=== PATIENT | male | born 1950 | race Caucasian/White ===

== ENCOUNTER → 2016-05-24 | Outpatient (CLI) | payer MEDICARE, OTHER ==
[~2016-05-24] MED LIST: BP MEDICATION PO; POLY10O RIGHT EYE
[2016-05-24 10:07] LABS: HDL CHOLESTEROL 56.8 MG/DL (40.0-60.0); INDIRECT BILIRUBIN 0.3 MG/DL (0.0-0.8); TOTAL BILIRUBIN ADULT 0.4 MG/DL (0.2-1.0)
== END ==
LOC: ELAB 07:07
PROVIDERS: ATTEND Internal Medicine Cardiovascular Disease
DX: E78.2 Mixed hyperlipidemia (principal); Z79.899 Other long term (current) drug therapy
CPT/HCPCS: 36415; 80061; 80076

== ENCOUNTER → 2016-11-28 | Outpatient (CLI) | payer MEDICARE, OTHER ==
[2016-11-28 09:07] LABS: AUTOMATED NEUTROPHIL # 5.9 TH/MM3 (1.8-7.7); BASOPHIL # 0.1 TH/MM3 (0-0.2); BASOPHIL % 0.7 % (0.0-2.0); EOSINOPHIL # 0.4 TH/MM3 (0-0.4); EOSINOPHIL % 4.7 % (0.0-4.0); HEMATOCRIT 46.6 % (39.0-51.0); HEMO FLAGS DIFF FINAL; LYMPHOCYTE # 1.7 TH/MM3 (1.0-4.8); MEAN CELL VOLUME 97.8 FL (80.0-100.0); MEAN CORPUSCULAR HEMOGLOBIN 32.9 PG (27.0-34.0); MEAN CORPUSCULAR HGB CONC 33.7 % (32.0-36.0); MONO % 9.2 % (0.0-8.0); NEUT % 66.4 % (16.0-70.0); PLATELET COUNT 244 TH/MM3 (150-450); RED BLOOD COUNT 4.77 MIL/MM3 (4.50-5.90); RED CELL DISTRIBUTION WIDTH 13.7 % (11.6-17.2); WHITE BLOOD COUNT 8.9 TH/MM3 (4.0-11.0)
[2016-11-28 11:26] LABS: ALT (GPT) 45 U/L (12-78); ANION GAP 6 MEQ/L (5-15); AST (GOT) 23 U/L (15-37); BICARBONATE 26.7 MEQ/L (21.0-32.0); BLOOD UREA NITROGEN 22 MG/DL (7-18); CHLORIDE 106 MEQ/L (98-107); GLOMERULAR FILTRATION RATE 48 ML/MIN (>89); GLUCOSE,FASTING 103 MG/DL (74-99); POTASSIUM 3.7 MEQ/L (3.5-5.1); SODIUM (NA) 139 MEQ/L (136-145)
[2016-11-28 11:35] LABS: ALKALINE PHOSPHATASE 62 U/L (45-117); FREE T4 0.89 NG/DL (0.76-1.46); HDL CHOLESTEROL 55.2 MG/DL (40.0-60.0); LDL CHOLESTEROL 52 MG/DL (0-99); TOTAL BILIRUBIN ADULT 0.5 MG/DL (0.2-1.0)
[2016-11-28 21:06] LABS: HEMOGLOBIN A1a 0.8 %; HEMOGLOBIN A1b 1.5 %; HEMOGLOBIN F 0.3 %; HEMOGLOBIN LA1C 2.1 %; HEMOGLOBIN P3 5.5 %
[2016-11-28 21:07] LABS: HEMOGLOBIN Ao 84.7 %
== END ==
LOC: ELAB 06:52
PROVIDERS: ATTEND Internal Medicine Cardiovascular Disease
DX: I10 Essential (primary) hypertension (principal); I50.1 Left ventricular failure, unspecified; E78.2 Mixed hyperlipidemia; R73.01 Impaired fasting glucose; Z79.899 Other long term (current) drug therapy
CPT/HCPCS: 36415; 80053; 80061; 82248; 83036; 84439; 84443; 84480; 85025

== ENCOUNTER → 2017-06-06 | Outpatient (CLI) | payer MEDICARE, OTHER ==
[2017-06-06 10:58] LABS: BASOPHIL # 0.1 TH/MM3 (0-0.2); EOSINOPHIL # 0.6 TH/MM3 (0-0.4); EOSINOPHIL % 8.5 % (0.0-4.0); HEMATOCRIT 43.8 % (39.0-51.0); HEMOGLOBIN 14.8 GM/DL (13.0-17.0); LYMPH % 21.7 % (9.0-44.0); LYMPHOCYTE # 1.4 TH/MM3 (1.0-4.8); MEAN CELL VOLUME 95.9 FL (80.0-100.0); MEAN CORPUSCULAR HEMOGLOBIN 32.4 PG (27.0-34.0); MEAN CORPUSCULAR HGB CONC 33.8 % (32.0-36.0); MEAN PLATELET VOLUME 7.9 FL (7.0-11.0); MONO % 8.6 % (0.0-8.0); MONOCYTE # 0.6 TH/MM3 (0-0.9); NEUT % 60.2 % (16.0-70.0); PLATELET COUNT 237 TH/MM3 (150-450); RED BLOOD COUNT 4.57 MIL/MM3 (4.50-5.90); RED CELL DISTRIBUTION WIDTH 14.1 % (11.6-17.2); WHITE BLOOD COUNT 6.7 TH/MM3 (4.0-11.0)
[2017-06-06 11:03] LABS: ALBUMIN 3.1 GM/DL (3.4-5.0); AST (GOT) 34 U/L (15-37); BICARBONATE 24.9 MEQ/L (21.0-32.0); BLOOD UREA NITROGEN 19 MG/DL (7-18); CALCIUM 7.9 MG/DL (8.5-10.1); CHLORIDE 109 MEQ/L (98-107); CREATININE 1.63 MG/DL (0.60-1.30); GLOMERULAR FILTRATION RATE 42 ML/MIN (>89); GLUCOSE,FASTING 95 MG/DL (74-99); SODIUM (NA) 143 MEQ/L (136-145)
[2017-06-06 11:04] LABS: CHOLESTEROL 172 MG/DL (120-200); TRIGLYCERIDES 297 MG/DL (42-150)
[2017-06-06 11:15] LABS: ALKALINE PHOSPHATASE 62 U/L (45-117); ALT (GPT) 47 U/L (12-78); CHOLESTEROL/ HDL RATIO 3.62 RATIO; FREE T4 0.88 NG/DL (0.76-1.46); HDL CHOLESTEROL 47.4 MG/DL (40.0-60.0); LDL CHOLESTEROL 65 MG/DL (0-99); TOTAL BILIRUBIN ADULT 0.4 MG/DL (0.2-1.0); TOTAL PROTEIN 7.1 GM/DL (6.4-8.2)
[2017-06-06 18:38] LABS: HEMOGLOBIN A1C 5.7 % (4.3-6.0)
== END ==
LOC: ELAB 07:02
PROVIDERS: ATTEND Internal Medicine Cardiovascular Disease
DX: E78.2 Mixed hyperlipidemia (principal); I10 Essential (primary) hypertension; I50.32 Chronic diastolic (congestive) heart failure; I34.0 Nonrheumatic mitral (valve) insufficiency; I36.2 Nonrheumatic tricuspid (valve) stenosis with insufficiency; R73.01 Impaired fasting glucose; Z79.899 Other long term (current) drug therapy
CPT/HCPCS: 36415; 80053; 80061; 83036; 84439; 84443; 84480; 85025